=== PATIENT | male | born 1950 | race Caucasian/White ===

== ENCOUNTER 2019-10-24 09:15 | Outpatient (CLI) | payer OTHER, SELFPAY ==
--- NOTE | ~2019-10-24 | CT_ITS ---
EXAMINATION: CT chest wo con DATE: 10/24/2019 09:36 INDICATION: Follow-up lung nodules. TECHNIQUE: Computed tomography (CT) of the chest was performed without intravenous contrast. The dose -length product was 114.24 mGy-cm. Automated exposure control and iterative reconstruction technique were employed. COMPARISON: Comparison to multiple prior studies sequentially, with oldest reviewed study dated 12/15. FINDINGS: There is a 9 mm fissural nodule on the right 70. This nodule was not significantly changed from prior examinations. There is a developing irregular shaped pleural-based mass right lower lobe m easuring 1.8 x 1.4 cm. There is adjacent parenchymal scarring/atelectasis. There is calcified granulo ma right upper lobe. Calcified right hilar lymph node. No endobronchial lesions. No focal airspace co nsolidation. Heart size normal. Calcified granulomas of the spleen. No significant pleural or pericar dial effusion. IMPRESSION: 1. Developing 1.8 cm right lower lobe pleural-based mass with adjacent parenchymal atelectasis/scarri ng. Recommend follow-up percutaneous biopsy or PET/CT examination. 2: No significant change to 9 mm right fissural nodule involving the minor fissure. Reviewed, dictated and finalized at location A. IMPRESSION: 1. Developing 1.8 cm right lower lobe pleural-based mass with adjacent parenchy mal atelectasis/scarring. Recommend follow-up percutaneous biopsy or PET/CT exa mination. 2: No significant change to 9 mm right fissural nodule involving the minor fis sure.
== END 2019-10-24 09:16 | disposition home or self-care (01) ==
PROVIDERS: PCP Family Medicine; Visit Provider Internal Medicine Critical Care Medicine
DX: R91.8 Other nonspecific abnormal finding of lung field (principal)
CPT/HCPCS: 71250

== ENCOUNTER 2019-12-04 10:37 | Outpatient (CLI) | payer OTHER, SELFPAY ==
--- NOTE | ~2019-12-04 | PE_ITS ---
EXAMINATION: PET skull to mid thigh DATE: 12/04/2019 12:30 INDICATION: Lung nodule. Malignant neoplasm of larynx. TECHNIQUE: Blood glucose level was 112 mg/dL. 10.13 mCi of 18-fluorodeoxyglucose (18-FDG) was adminis tered i.v. Low dose computed tomography (CT) images were acquired from the base of the brain to the p roximal thighs for attenuation correction and anatomic localization. Automated exposure control was e mployed. Dose-length product (DLP) was 659 mGy-cm. Positron emission tomography (PET) images were acq uired in the same distribution. COMPARISON: Chest CT 10/24/2019, 05/17/2012, PET CT 04/17/2019 FINDINGS: Head/neck: There is increased activity in the right vocal cord with maximum SUV of 2.[address] cor relate, likely physiologic. There is chronic deformity of the left vocal cord with chronic absence of some of the thyroid cartilage on the left, consistent with surgical change. There are no pathologica lly enlarged lymph nodes. There is mild mucosal thickening in the paranasal sinuses. Chest: There is mild scarring at the lung apices. There is mild emphysema. Calcified right lung nodul es and calcified right hilar lymph nodes are consistent with old adenomatous disease. There is a 7 mm nodule at minor fissure without increased activity. There is a 5 mm nodule in right middle lobe with out increased activity. These findings are unchanged from 05/17/12, likely benign. There is chronic oc clusion of a subsegmental bronchus in superior segment right lower lobe with postobstructive 4.7 x 1. 5 cm mass with maximum SUV of 2.2. No pleural effusion. The heart size is normal. There are coronary artery calcifications. No pericardial effusion. There is mild thoracic spondylosis. Abdomen/pelvis/proximal thighs: The liver, gallbladder, pancreas, and adrenal glands are normal. Calc ifications in the spleen are consistent with old granulomatous disease. The kidneys are normal. There are no dilated loops of bowel. The prostate is moderately enlarged. There are no pathologically enla rged lymph nodes. There is no free intraperitoneal fluid. Is mild lumbar spondylosis. IMPRESSION: 1. Occlusion of a subsegmental bronchus in superior segment right lower lobe since 05/17/12, likely be nign. Postobstructive mass without increased activity, likely chronic infection/scarring. Reviewed, dictated and finalized at location A. IMPRESSION: 1. Occlusion of a subsegmental bronchus in superior segment right lower lobe si nce 05/17/12, likely benign. Postobstructive mass without increased activity, christal asencio chronic infection/scarring.
[2019-12-04 11:11] LABS: Glucose Point of Care 112 (65-105)
== END 2019-12-04 10:38 | disposition home or self-care (01) ==
PROVIDERS: PCP Family Medicine
DX: C32.9 Malignant neoplasm of larynx, unspecified (principal); R91.8 Other nonspecific abnormal finding of lung field
CPT/HCPCS: 78815; A9552

== ENCOUNTER 2023-02-03 18:52 | Emergency (ER) | payer OTHER, SELFPAY ==
[2023-02-03] VITALS (22 sets, daily range): BP systolic 97–173; BP diastolic 62–83; PULSE 66–83; RESP 14–26; O2SAT 91–100
--- NOTE | ~2023-02-03 | CT_ITS ---
EXAMINATION: CT brain wo con DATE: 02/03/2023 20:00 INDICATION: History of laryngeal cancer, eval for mets . TECHNIQUE: Computed tomography (CT) of the head was performed without intravenous contrast. The mA wa s adjusted according to patient size. Iterative reconstruction technique was employed. The dose-lengt h product was 681.00 mGy-cm. COMPARISON: None. FINDINGS: No acute intracranial hemorrhage or extra-axial fluid collection. No hydrocephalus, mass, or herniation. No acute ischemic infarct. Unremarkable dural venous sinus attenuation. No acute osseous abnormality. Mucosal thickening in the left frontal, ethmoid, and bilateral maxillary sinuses, the remaining aerat ed spaces are clear. Atherosclerotic intracranial calcifications. Mild atrophy and chronic white matter change. IMPRESSION: No acute intracranial process. No definite CT evidence of metastatic disease, noting that noncontrast CT is relatively insensitive f or this diagnosis. Reviewed, dictated and finalized at location K. IMPRESSION: No acute intracranial process. No definite CT evidence of metastatic disease, noting that noncontrast CT is re latively insensitive for this diagnosis.
--- NOTE | ~2023-02-03 | XR_ITS ---
EXAMINATION: XR chest 2V Exam Date/Time: 02/03/2023 19:59 CDT HISTORY: Syncope Comparison: None. RESULT: Lines, tubes, and devices: None. Lungs and pleura: Low volumes with crowding. Senescent change, otherwise clear. Cardiomediastinal silhouette: Unremarkable. Other: No acute osseous or upper abdominal finding. IMPRESSION: No acute cardiopulmonary process. Reviewed, dictated and finalized at location K.
--- NOTE | ~2023-02-03 | CT_ITS ---
EXAMINATION: CTA chest PE protocol DATE: 02/03/2023 21:13 INDICATION: Syncope TECHNIQUE: Computed tomography angiography (CTA) of the chest was performed with 100 mL Omnipaque-350 intravenous contrast timed to evaluate the pulmonary arteries. Coronal maximum intensity projection 3D-reconstructions were created by the technologist. The dose-length product (DLP) was 487.67 mGy-cm. Automated exposure control and iterative reconstruction technique were employed. COMPARISON: X-ray chest, same date; CT chest 10/24/2019; PET 12/04/2019. FINDINGS: Lung parenchyma and airways: Dependent atelectasis. Lobular 6.0 x 1.8 cm somewhat low density opacity in the medial right lower lobe. Minimal secretions in the lower trachea. Stable 7 mm pulmonary nodul e on the minor fissure. Stable peripheral right middle lobe nodule. Pleura: Unremarkable. Thoracic inlet, axillae and chest wall: Unremarkable. Thoracic aorta: Normal. Mediastinum: Prominent right hilar lymph nodes. Enlarged subcarinal lymph node.. Heart and pericardium: Mild cardiomegaly. Coronary artery calcifications: Mild. Upper abdomen: No significant finding. Bones: No acute osseous finding. Pulmonary arteries: Study quality: Motion artifact limits evaluation of subsegmental arterial branche s. No central or segmental pulmonary emboli detected. IMPRESSION: Motion artifact limits evaluation of subsegmental pulmonary artery branches. No CT evidence of acute central or segmental pulmonary embolus. Mild subcarinal lymphadenopathy. 6 cm lobular opacity in the medial right lower lobe, likely chronic/recurrent mucoid impaction. Reviewed, dictated and finalized at location K. IMPRESSION: Motion artifact limits evaluation of subsegmental pulmonary artery branches. No CT evidence of acute central or segmental pulmonary embolus. Mild subcarinal lymphadenopathy. 6 cm lobular opacity in the medial right lower lobe, likely chronic/recurrent m ucoid impaction.
--- NOTE | 2023-02-03 19:01 | ECG_ITS ---
Measurements Intervals [place] Rate: 67 P: 19 WY: 158 QRS: -9 QRSD: 106 T: 7 QT: 416 QTc: 440 Interpretive Statements SINUS RHYTHM VOLTAGE CRITERIA FOR LVH BORDERLINE ECG NO PREVIOUS ECG AVAILABLE FOR COMPARISON Electronically Signed On 02-03-2023 20:39:22 CDT by Eric Cullen D.O.
--- NOTE | 2023-02-03 19:21 | ED.SYNCOPE ---
HPI - Syncope General Chief Complaint: Syncope Stated Complaint: SYNCOPAL EPISODE, BRADYCARDIC Time Seen by Provider: 02/03/23 18:59 History of Present Illness HPI narrative: This is a 72-year-old male, with past history of laryngeal and lung cancer and hypertension, brought in by EMS from a wedding for syncope. The patient's , who is at bedside notes the patient was in his usual state of health, when he began complaining of malaise. The patient signed down in a few minutes later was noted to be red in the face and lost consciousness for approximately 30 seconds. On resumption of consciousness he appeared mildly confused for about 1 minute. Nursing staff reports during transport by EMS, the patient had an episode of bradycardia that has spontaneously resolved. The patient denies any recent change in his health, bleeding, diarrhea, vomiting, chest pain or shortness of breath Related Data Home Medications Medication Instructions Recorded Confirmed aspirin 81 mg tablet,delayed 81 mg PO DAILY 02/28/21 01/16/23 release (Adult Low Dose Aspirin) Allergies Allergy/AdvReac Type Severity Reaction Status Date / Time Penicillins Allergy Mild Unknown Verified 02/03/23 19:05 Review of Systems Review of Systems: CONSTITUTIONAL: Denies fever, chills, or sweats. CARDIOVASCULAR: Denies chest pain, palpitations, or edema. RESPIRATORY: Denies cough or dyspnea. GASTROINTESTINAL: Denies abdominal pain, nausea, vomiting, or diarrhea. GENITOURINARY: Denies dysuria or hematuria. SKIN: Denies rash or itching. MUSCULOSKELETAL: Denies back pain, joint pain, or myalgia. NEUROLOGIC: Denies headache, numbness, dizziness, or weakness. PSYCHIATRIC: Denies anxiety or depression. [facility] Past Medical History Medical History BMI 27.0-27.9,adult BPH (benign prostatic hyperplasia) Cavitary lesion of lung Dysphagia due to surgical removal of larynx ED (erectile dysfunction) Encounter for immunization Former smoker GERD (gastroesophageal reflux disease) History of laryngeal cancer History of tobacco abuse Hyperlipidemia Insomnia Left knee pain Plantar wart of both feet Primary hypertension Prostate cancer screening Pulmonary nodule Family History Family History Father Patient's father is , Onset Age: 67 Sibling Patient's sister is in good health Mother Cerebrovascular accident Social History Social History Smoking packs per day: 2 Smoking cigarettes per day: 40.0 Years smoked: 50 Smoking pack-years: 100.00 Smoking status: Former smoker Tobacco type: cigarettes Second hand tobacco smoke exposure: No Smoking end date: 05/07/06 Alcohol intake: current Drinks per week: 20 Substance use: never Substance use type: does not use Lack of Transportation: No Lack of Food: Never True Current Housing: I Have Housing Concerned About Future Housing: No Difficulty Paying Gas/Electric Bills: No Difficulty Paying for Meds: No Currently Unemployed: No Education: Bachelor's Degree Difficulty w/ Childcare or Family Care: No Living arrangements: with family Occupation/Education: retired Gender identity (if verbalized by the patient): Male Sexual Orientation (if Verbalized by the Patient): Straight or Heterosexual Spiritual care concerns: No Agree to blood products: Yes Exam Narrative: GENERAL: Well-developed, well-nourished, and in no acute distress. HEAD: Normocephalic, atraumatic. EYES: PERRLA and EOMI. ENT: Nares clear, no rhinorrhea or epistaxis. Mucous membranes dry. Oropharynx without tonsillar hypertrophy exudate or other lesions. NECK: Supple. No adenopathy or masses. No carotid bruits or JVD CHEST: Clear to auscultation. No respiratory distress. No wheezes rales or rhonchi HEART: Regu
--- NOTE | 2023-02-03 19:27 | PC.NURSE ---
Report received from MARY LOU Granados. Assumed care of patient at this time.
[2023-02-03 19:33] LABS: Basophils Absolute Auto 0.1 K/mm3 (0.0-0.1); Basophils Percent Auto 0.7 % (0.2-1.2); Eosinophils Absolute Auto 0.2 K/mm3 (0-0.3); Eosinophils Percent Auto 2.3 % (0-4.4); Hematocrit 44.1 % (42.0-52.0); Hemoglobin 14.3 g/dL (14.0-18.0); Immature Granulocyte Absolute 0.09 K/mm3 (0.00-0.031); Immature Granulocyte Percent A 0.9 % (0-0.5); Lymphocytes Absolute Auto 1.91 K/mm3 (0.9-3.2); Lymphocytes Percent Auto 18.2 % (18.3-44.2); Mean Corpuscular HGB Conc 32.4 g/dl (32-36); Mean Corpuscular Hemoglobin 28.5 pg (26-34); Mean Corpuscular Volume 87.8 fl (80-100); Mean Platelet Volume 10.1 fl (7.4-10.4); Monocytes Absolute Auto 0.7 K/mm3 (0.1-0.6); Neutrophils Absolute Auto 7.5 K/mm3 (1.3-6.7); Neutrophils Percent Auto 70.9 % (45.5-73.1); Platelet Count Result 266 k/mm3 (150-375); Red Blood Count 5.02 M/mm3 (4.6-6.20); Red Cell Distribution Width 14.1 % (11.5-14.5); White Blood Count 10.5 K/mm3 (4.5-10.0)
[2023-02-03] MEDS: SODIUM CHLORIDE 0.9% IV 1,000 ML 999 ML IV CONT (19:45)
[2023-02-03 19:49] LABS: Alanine Aminotransferase 32 U/L (6-50); Albumin Level 4.4 g/dL (3.5-5.1); Alkaline Phosphatase 62 U/L (38-126); Anion Gap 9 mmol/L (8-16); Aspartate Amino Transferase 37 U/L (17-59); Bilirubin,Total 0.6 mg/dL (0.2-1.3); Blood Urea Nitrogen 15 mg/dL (9-20); Calcium 8.7 mg/dL (8.4-10.2); Carbon Dioxide 23 mmol/L (22-30); Chloride 106 mmol/L (98-107); Estimated Glomerular Filt Rate 37; Glucose 120 mg/dL (65-110); Potassium 3.7 mmol/L (3.4-5.0); Sodium 138 mmol/L (137-145)
[2023-02-03 19:51] LABS: Magnesium 2.2 mg/dL (1.6-2.3)
[2023-02-03 19:59] LABS: Ethanol < 10 mg/dL (<10)
[2023-02-03 20:03] LABS: Troponin I < 0.012 ng/mL (0.000-0.034)
[2023-02-03 20:17] LABS: D Dimer 1.11 ug/mL (<0.48)
[2023-02-03 21:33] LABS: Appearance Urine Clear (Clear); Bacteria Urine None Seen /hpf; Bilirubin Urine Negative (Negative); Blood Urine Negative (Negative); Color Urine Yellow (Yellow); Glucose Urine UA Negative (Negative); Hyaline Casts Urine Present /lpf; Ketones Urine Negative (Negative); Leukocyte Esterase Ur Negative LEU/UL (Negative); Nitrate Urine Negative (Negative); Non Pathogenic Casts >20; Protein Urine Trace mg/dL (Negative); RBC Urine 0-2 /hpf (0-2); Specific Grav Ur 1.017 (1.001-1.035); Squamous Epithelial Cell Urine Occasional /hpf (Few); Urobilinogen Urine 0.2 mg/dL (<2.0); WBC Urine 0-5 /hpf
[2023-02-03 21:34] LABS: Add Urine Microscopic? YES
[2023-02-03 21:48] LABS: Barbiturate Screen Urine Negative (Negative); Benzodiazepines Screen Urine Negative (Negative)
[2023-02-03 21:49] LABS: Amphetamine Screen Urine Negative (Negative); Cannabinoid Screen Urine Positive (Negative); Cocaine Screen Urine Negative (Negative); Methadone Screen Urine Negative (Negative); Opiate Screen Urine Negative (Negative); Phencyclidine Screen Urine Negative (Negative)
[2023-02-03 22:42] LABS: Anion Gap 7 mmol/L (8-16); Blood Urea Nitrogen 14 mg/dL (9-20); Calcium 8.2 mg/dL (8.4-10.2); Carbon Dioxide 25 mmol/L (22-30); Chloride 105 mmol/L (98-107); Estimated Glomerular Filt Rate 50; Glucose 112 mg/dL (65-110); Potassium 3.7 mmol/L (3.4-5.0); Sodium 137 mmol/L (137-145)
--- NOTE | 2023-02-03 22:50 | PC.NURSE ---
Patient ambulated to the bathroom with a steady unassisted gait. ERP notified.
== END 2023-02-03 23:18 | disposition home or self-care (01) ==
PROVIDERS: Emergency Provider Preventive Medicine Aerospace Medicine; PCP Family Medicine
DX: R55 Syncope and collapse (principal); E86.0 Dehydration; I10 Essential (primary) hypertension; N40.0 Benign prostatic hyperplasia without lower urinary tract symptoms; K21.9 Gastro-esophageal reflux disease without esophagitis; R13.10 Dysphagia, unspecified; Z85.118 Personal history of other malignant neoplasm of bronchus and lung; Z85.21 Personal history of malignant neoplasm of larynx; Z87.891 Personal history of nicotine dependence; Z90.02 Acquired absence of larynx; Z79.82 Long term (current) use of aspirin; Z79.899 Other long term (current) drug therapy; R94.31 Abnormal electrocardiogram [ECG] [EKG]
CPT/HCPCS: 36415; 70450; 71046; 71275; 80048; 80053; 80307; 81001; 83735; 84484; 85025; 85380; 93005; 96360; 99284; J7030; Q9967